=== PATIENT | female | born 1995 | race Caucasian/White ===

== ENCOUNTER 2019-01-24 09:28 | Emergency (ER) | payer OTHER ==
[~2019-01-24] VITALS: Ht 162.6 cm; Wt 94.4 kg
[~2019-01-24 09:28] MED LIST: CEPH-443 PO; PRED20TA PO; TRIA15CR55 TOP
[2019-01-24 09:30] VITALS: BP 120/57; PULSE 83; RESP 18; Ht 162.6 cm; Wt 94.4 kg
[2019-01-24] MEDS ORDERED: FLUC150T PO ×2 (10:42→10:44)
[2019-01-24] MEDS ORDERED: CLOT30CR24 TOP (10:42)
--- NOTE | 2019-01-24 11:13 | ERD ---
ER Documentation Chief Complaint Chief Complaint RASH ON THIGHS X 2 MONTHS HPI This is a 23-year-old female who presents ED with complaints of off-and-on groin rash for the past 2 months. Patient has tried clotrimazole as prescribed by her primary care physician as has seen some improvement in rash but it has returned 4 days ago. Patient admits to itchiness and some mild pain. Denies fever, chills, abdominal pain, vaginal pain, vaginal discharge, nausea, vomiting, diarrhea, cuts patient other symptoms. No known drug allergies. ROS All systems reviewed and are negative except as per history of present illness. Medications Home Meds Active Scripts Fluconazole* (Diflucan*) 150 Mg Tablet, 300 MG PO once a week, #8 TAB Prov:ANABEL FOSTER PA-C 01/24/19 Clotrimazole* (Clotrimazole* AF) 1% - 30 Gm Cream.gm., 1 APPLIC TOP BID for 7 Days, TUB Prov:ANABEL FOSTER PA-C 01/24/19 Cephalexin* (Keflex*) 500 Mg Capsule, 500 MG PO QID for 7 Days, CAP Prov:MARIA ELENA WILKINSON MD 07/26/18 Triamcinolone Acetonide (Triamcinolone Acetonide) 0.1% - 15 Gm Cream.gm., 1 APPLIC TOP QID for 7 Days, #1 TUB Prov:MARIA ELENA WILKINSON MD 07/26/18 Prednisone* (Prednisone*) 20 Mg Tab, 60 MG PO DAILY for 4 Days, TAB Start July 27, 2018 Prov:MARIA ELENA WILKINSON MD 07/26/18 Allergies Allergies: Coded Allergies: No Known Allergy (Unverified , 07/26/18) PMhx/Soc Medical and Surgical Hx: pt denies Medical Hx, pt denies Surgical Hx Hx Alcohol Use: Yes Hx Tobacco Use: Yes Smoking Status: Current some day smoker Physical Exam Vitals Vital Signs Date Temp Pulse Resp B/P (MAP) Pulse Ox O2 O2 Flow FiO2 Time Delivery Rate 01/24/19 98.2 83 18 120/57 100 09:30 (78) Physical Exam Const: No acute distress Head: Atraumatic Eyes: Normal Conjunctiva ENT: Normal External Ears, Nose and Mouth. Neck: Full range of motion. No meningismus. Resp: Clear to auscultation bilaterally Cardio: Regular rate and rhythm, no murmurs Abd: Soft, non tender, non distended. Normal bowel sounds Skin: There is a rash in bilateral groin that is mildly erythematous brownish with rolled borders, no warmth, no tenderness to palpation, excoriations from scratching noted resembling tinea cruris Neur: Awake and alert Psych: Normal Mood and Affect Procedures/MDM ER COURSE: The patient was stable throughout ED course. I kept the patient and/or family informed of laboratory and diagnostic imaging results throughout the emergency room course. The patient was promptly evaluated and a treatment plan was devised based on H&P and other data. This plan was discussed with the patient who agreed and had no further questions or concerns prior to discharge. MEDICAL DECISION MAKIN-year-old female presents ED with tinea cruris infection that is been on and off for the past 2 months. Patient has tried topical clotrimazole and states that it has worked somewhat but rash has been worsening. Will give patient on oral fluconazole for tinea cruris infection. Patient was advised to follow-up with her primary care physician to have liver function test and also to see dermatology. Patient was advised to lose weight and engage in more cardio activity. Low suspicion for anaphylaxis, scabies, STS, TEN, Lyme's disease, syphilis, [place] spotted fever, shingles, disseminated gonorrhea chlamydia, DIC, TTP, ITP, sepsis, necrotizing fasciitis, gangrene, or other emergent condition. Patient's vitals are stable and can be managed with outpatient close follow-up. Advised patient to follow-up with her primary care in the next 48 hours. Advised patient return to ED with any worsening symptoms. DISPOSITION PLAN: We discussed follow up with the patient's primary care doctor within 24 to 48 hours. Patient counseled regarding my diagnostic impression and care plan. Prior to discharge all questions answered. Pt agrees with treatment plan and understands strict return precautions. Precautionary instructions provided including instructions to return to the ER if not improving or for any worsening or changing symptoms or concerns. ExitCare instructions provided. Prior to discharge, patients vital signs have been reviewed SPECIALIST FOLLOW UP RECOMMENDED: Dermatology Patient has been advised to follow up with primary care in 1-2 days. Disclaimer: Inadvertent spelling and grammatical errors are likely due to EHR/dictation software use and do not reflect on the overall quality of patient care. Also, please note that the electronic time recorded on this note does not necessarily reflect the actual time of the patient encounter. Departure Diagnosis: Primary Impression: Tinea cruris Condition: Stable Patient Instructions: Machelle Pratts, General Referrals: JIM VALENTIN MD,JUANITA MURRELL,LILIBETH SANCHEZ,ZOË RAMIRES,RHONDA MAJOR,JO ANN PAEZ,JO ANN Villalobos [facility] YOU HAVE RECEIVED A MEDICAL SCREENING EXAM AND THE RESULTS INDICATE THAT YOU DO NOT HAVE A CONDITION THAT REQUIRES URGENT TREATMENT IN THE EMERGENCY DEPARTMENT. FURTHER EVALUATION AND TREATMENT OF YOUR CONDITION CAN WAIT UNTIL YOU ARE SEEN I N YOUR DOCTORS OFFICE WITHIN THE NEXT 1-2 DAYS. IT IS YOUR RESPONSIBILITY TO MAKE AN APPOINTMENT FOR FOLOW-UP CARE. IF YOU HAVE A PRIMARY DOCTOR --you should call your primary doctor and schedule an appointment IF YOU DO NOT HAVE A PRIMARY DOCTOR YOU CAN CALL OUR PHYSICIAN REFERRAL HOTLINE AT IF YOU CAN NOT AFFORD TO SEE A PHYSICIAN YOU CAN CHOSE FROM THE FOLLOWING [facility] [address] [facility] [facility]. [facility] [address] [facility] [facility] [facility] [address] [facility] [address] [facility] [facility] [address] [facility]. [facility]. [address] Additional Instructions: Patient advised to return to the ED immediately for new or worsening symptoms. Patient advised to follow up with primary care provider in the next 24-48 hours. Patient verbalized understanding and agrees with treatment plan and course of action. If patient has no primary care they may follow up with one of the [facility] listed on the following page or one of the options listed below [facility] [address] [place] [address] or [facility] [address] [place] [address] or [facility] [address] [place] [address] ANABEL FOSTER PA-C Jan 24, 2019 11:13
== END 2019-01-24 11:29 | disposition home or self-care (01) ==
LOC: FTE 09:28
DX: B35.6 Tinea cruris (principal); F17.210 Nicotine dependence, cigarettes, uncomplicated
CPT/HCPCS: 99283